=== PATIENT | male | born 1990 | race Caucasian/White ===

== ENCOUNTER 2017-01-20 22:40 | Emergency (ER) | payer OTHER ==
[~2017-01-20] VITALS: Ht 162.5 cm; Wt 77.1 kg
[~2017-01-20 22:40] MED LIST: ALLEGRA ALLERG180 M2 PO; AMBIEN10 MG PO; AMOXICILLIN500 M2 PO; AMOXICILLIN500 MG PO; BACTRIM DS 8001 TA1 PO; HYDROCODONE BIT1 T11 PO; KEFLEX500 MG PO; MOTRIN800 MG PO; NAPROSYN500 MG PO; PREDNISONE20 M1 PO; XANAX0.25 MG PO; ZYRTEC10 MG PO
[2017-01-21 00:53] LABS: URINE AMPHETAMINES < 1000 (1000ng/ml); URINE BARBITURATES < 200 (200ng/ml); URINE COCAINE < 300 (300ng/ml)
[2017-01-21 01:53] LABS: BILIRUBIN NEGATIVE (NEGATIVE); BLOOD NEGATIVE (NEGATIVE); CLARITY CLEAR (CLEAR); COLOR YELLOW (YELLOW); GLUCOSE NEGATIVE (NEGATIVE); KETONE NEGATIVE (NEGATIVE); LEUKO ESTERASE NEGATIVE (NEGATIVE); NITRITE NEGATIVE (NEGATIVE); PROTEIN NEGATIVE (NEGATIVE)
[2017-01-21 02:00] LABS: URINE REFLEX COMMENT NO (NO)
== END 2017-01-21 02:33 | disposition home or self-care (01) ==
LOC: ED 22:40
PROVIDERS: Emergency Medicine Emergency Medical Services
DX: J02.9 Acute pharyngitis, unspecified (principal); B34.9 Viral infection, unspecified

== ENCOUNTER 2017-07-25 01:39 | Emergency (ER) | payer OTHER ==
[~2017-07-25] VITALS: Ht 167.6 cm; Wt 83.9 kg
[2017-07-25 02:29] LABS: BASO % 0.4 % (0.0-1.0); EOS # 0.1 10*3/uL (0.0-0.4); EOS % 1.2 % (1.0-4.0); HEMATOCRIT 41.1 % (42.0-52.0); HEMOGLOBIN 14.1 g/dl (14.0-18.0); LYMPH # 2.7 10*3/uL (1.3-4.4); LYMPH % 34.8 % (27.0-41.0); MEAN CELL VOLUME 86.7 fl (80.0-94.0); MEAN CORPUSCULAR HGB 29.7 pg (27.0-31.0); MEAN CORPUSCULAR HGB CONC 34.3 g/dl (33.0-37.0); MEAN PLATELET VOLUME 10.2 fl (9.6-12.3); MONO # 0.6 10*3/uL (0.1-1.0); MONO % 7.7 % (3.0-9.0); NEUT # 4.3 10*3/uL (2.3-7.9); NEUT % 55.5 % (47.0-73.0); PLATELET COUNT AUTOMATED 236 10*3/uL (130-400); RED BLOOD COUNT 4.74 10*6/uL (4.50-5.90); RED CELL DISTRI WIDTH 12.8 % (0-14.5); WHITE BLOOD COUNT 7.7 10*3/uL (4.8-10.8)
[2017-07-25 02:44] LABS: ALBUMIN 4.3 gm/dl (3.1-4.5); ALKALINE PHOSPHATASE 58 U/L (45-117); BUN 15 mg/dl (7-24); CHLORIDE 107 mmol/L (98-107); CREATININE 1.24 mg/dL (0.70-1.30); POTASSIUM 4.1 mmol/L (3.5-5.1); SGOT/AST 13 IU/L (3-35); SGPT/ALT 14 U/L (12-78); SODIUM 141 mmol/L (136-145); TOTAL PROTEIN 7.7 gm/dL (6.4-8.2)
[2017-07-25 03:09] LABS: BILIRUBIN NEGATIVE (NEGATIVE); BLOOD NEGATIVE (NEGATIVE); CLARITY CLEAR (CLEAR); COLOR YELLOW (YELLOW); GLUCOSE NEGATIVE (NEGATIVE); KETONE NEGATIVE (NEGATIVE); LEUKO ESTERASE NEGATIVE (NEGATIVE); NITRITE NEGATIVE (NEGATIVE); SPECIFIC GRAVITY <= 1.005 (1.005-1.030); UROBILINOGEN 0.2 E.U./dl (0.2-1.0)
[2017-07-25 03:18] LABS: RBC 0-2 rbc/hpf (0-2)
== END 2017-07-25 03:54 | disposition home or self-care (01) ==
LOC: ED 01:39
PROVIDERS: Emergency Medicine
DX: R10.30 Lower abdominal pain, unspecified (principal); F17.200 Nicotine dependence, unspecified, uncomplicated

== ENCOUNTER 2017-10-15 09:02 | Emergency (ER) | payer OTHER ==
[~2017-10-15] VITALS: Ht 165.1 cm; Wt 77.1 kg
[2017-10-15 09:56] LABS: BILIRUBIN NEGATIVE (NEGATIVE); BLOOD NEGATIVE (NEGATIVE); CLARITY CLEAR (CLEAR); COLOR YELLOW (YELLOW); GLUCOSE NEGATIVE (NEGATIVE); KETONE NEGATIVE (NEGATIVE); LEUKO ESTERASE NEGATIVE (NEGATIVE); NITRITE NEGATIVE (NEGATIVE); SPECIFIC GRAVITY <= 1.005 (1.005-1.030); UROBILINOGEN 0.2 E.U./dl (0.2-1.0)
[2017-10-15 10:08] LABS: BACTERIA TRACE; WBC 0-2 wbc/hpf (0-5)
[2017-10-15 10:13] LABS: BASO % 0.3 % (0.0-1.0); EOS # 0.2 10*3/uL (0.0-0.4); EOS % 1.6 % (1.0-4.0); HEMATOCRIT 40.8 % (42.0-52.0); HEMOGLOBIN 13.8 g/dl (14.0-18.0); LYMPH # 1.9 10*3/uL (1.3-4.4); MEAN CELL VOLUME 87.2 fl (80.0-94.0); MEAN CORPUSCULAR HGB 29.5 pg (27.0-31.0); MEAN CORPUSCULAR HGB CONC 33.8 g/dl (33.0-37.0); MEAN PLATELET VOLUME 9.8 fl (9.6-12.3); MONO # 0.6 10*3/uL (0.1-1.0); MONO % 6.5 % (3.0-9.0); NEUT # 7.1 10*3/uL (2.3-7.9); NEUT % 72.1 % (47.0-73.0); PLATELET COUNT AUTOMATED 258 10*3/uL (130-400); RED BLOOD COUNT 4.68 10*6/uL (4.50-5.90); RED CELL DISTRI WIDTH 12.7 % (0-14.5); WHITE BLOOD COUNT 9.8 10*3/uL (4.8-10.8)
[2017-10-15 10:29] LABS: ALBUMIN 3.8 gm/dl (3.1-4.5); ALKALINE PHOSPHATASE 49 U/L (45-117); BUN 11 mg/dl (7-24); CHLORIDE 105 mmol/L (98-107); CREATININE 0.97 mg/dL (0.70-1.30); SGOT/AST 12 IU/L (3-35); SGPT/ALT 19 U/L (12-78); SODIUM 141 mmol/L (136-145); TOTAL PROTEIN 6.9 gm/dL (6.4-8.2)
[2017-10-15] MEDS ORDERED: NAPROSYN500 MG PO (10:36)
[2017-10-15] MEDS ORDERED: CYCLOBENZAPRINE10 MG PO (10:36)
== END 2017-10-15 10:36 | disposition home or self-care (01) ==
LOC: ED 09:02
PROVIDERS: Nurse Practitioner Family
DX: S39.012A Strain of muscle, fascia and tendon of lower back, initial encounter (principal); F17.200 Nicotine dependence, unspecified, uncomplicated; X58.XXXA Exposure to other specified factors, initial encounter; Y93.89 Activity, other specified; Y92.89 Other specified places as the place of occurrence of the external cause; Y99.8 Other external cause status

== ENCOUNTER → 2017-12-30 | Outpatient (CLI) | payer OTHER ==
[~2017-12-30] MED LIST changes: +CYCLOBENZAPRINE10 MG PO
[2017-12-30 13:30] LABS: BASO % 0.5 % (0.0-1.0); EOS # 0.1 10*3/uL (0.0-0.4); EOS % 1.8 % (1.0-4.0); HEMATOCRIT 46.9 % (42.0-52.0); HEMOGLOBIN 16.2 g/dl (14.0-18.0); LYMPH # 2.4 10*3/uL (1.3-4.4); LYMPH % 30.2 % (27.0-41.0); MEAN CELL VOLUME 86.7 fl (80.0-94.0); MEAN CORPUSCULAR HGB 29.9 pg (27.0-31.0); MEAN CORPUSCULAR HGB CONC 34.5 g/dl (33.0-37.0); MEAN PLATELET VOLUME 10.1 fl (9.6-12.3); MONO # 0.6 10*3/uL (0.1-1.0); MONO % 7.4 % (3.0-9.0); NEUT # 4.7 10*3/uL (2.3-7.9); NEUT % 59.6 % (47.0-73.0); PLATELET COUNT AUTOMATED 259 10*3/uL (130-400); RED BLOOD COUNT 5.41 10*6/uL (4.50-5.90); RED CELL DISTRI WIDTH 12.9 % (0-14.5); WHITE BLOOD COUNT 7.9 10*3/uL (4.8-10.8)
[2017-12-30 13:39] LABS: ALBUMIN 4.4 gm/dl (3.1-4.5); BUN 15 mg/dl (7-24); CHLORIDE 106 mmol/L (98-107); CREATININE 1.07 mg/dL (0.70-1.30); PHOSPHOROUS 2.8 mg/dL (2.5-4.9); POTASSIUM 4.2 mmol/L (3.5-5.1); SODIUM 140 mmol/L (136-145)
[2017-12-30 16:18] LABS: BILIRUBIN NEGATIVE (NEGATIVE); BLOOD NEGATIVE (NEGATIVE); CLARITY CLEAR (CLEAR); COLOR YELLOW (YELLOW); GLUCOSE NEGATIVE (NEGATIVE); KETONE NEGATIVE (NEGATIVE); LEUKO ESTERASE NEGATIVE (NEGATIVE); NITRITE NEGATIVE (NEGATIVE); SPECIFIC GRAVITY 1.015 (1.005-1.030); UROBILINOGEN 0.2 E.U./dl (0.2-1.0)
[2017-12-30 16:28] LABS: BACTERIA TRACE; MUCOUS TRACE; RBC 0-2 rbc/hpf (0-2)
== END | disposition home or self-care (01) ==
LOC: LAB 12:48
PROVIDERS: Internal Medicine Nephrology
DX: N17.9 Acute kidney failure, unspecified (principal)

== ENCOUNTER 2017-12-31 02:32 | Emergency (ER) | payer OTHER ==
[~2017-12-31] VITALS: Ht 162.5 cm; Wt 77.1 kg
[2017-12-31 03:06] LABS: BILIRUBIN NEGATIVE (NEGATIVE); BLOOD NEGATIVE (NEGATIVE); CLARITY CLEAR (CLEAR); COLOR YELLOW (YELLOW); GLUCOSE NEGATIVE (NEGATIVE); KETONE NEGATIVE (NEGATIVE); LEUKO ESTERASE NEGATIVE (NEGATIVE); NITRITE NEGATIVE (NEGATIVE); SPECIFIC GRAVITY <= 1.005 (1.005-1.030); UROBILINOGEN 0.2 E.U./dl (0.2-1.0)
[2017-12-31 03:12] LABS: RBC 0-2 rbc/hpf (0-2)
[2017-12-31 03:29] LABS: BASO % 0.4 % (0.0-1.0); EOS # 0.1 10*3/uL (0.0-0.4); EOS % 1.8 % (1.0-4.0); HEMATOCRIT 41.7 % (42.0-52.0); HEMOGLOBIN 14.2 g/dl (14.0-18.0); LYMPH # 2.2 10*3/uL (1.3-4.4); LYMPH % 29.8 % (27.0-41.0); MEAN CELL VOLUME 86.9 fl (80.0-94.0); MEAN CORPUSCULAR HGB 29.6 pg (27.0-31.0); MEAN CORPUSCULAR HGB CONC 34.1 g/dl (33.0-37.0); MEAN PLATELET VOLUME 9.9 fl (9.6-12.3); MONO # 0.6 10*3/uL (0.1-1.0); MONO % 7.8 % (3.0-9.0); NEUT # 4.4 10*3/uL (2.3-7.9); NEUT % 59.8 % (47.0-73.0); PLATELET COUNT AUTOMATED 221 10*3/uL (130-400); RED CELL DISTRI WIDTH 12.7 % (0-14.5); WHITE BLOOD COUNT 7.3 10*3/uL (4.8-10.8)
[2017-12-31 03:43] LABS: ALBUMIN 3.8 gm/dl (3.1-4.5); ALKALINE PHOSPHATASE 56 U/L (45-117); BUN 12 mg/dl (7-24); CHLORIDE 107 mmol/L (98-107); CREATININE 1.11 mg/dL (0.70-1.30); POTASSIUM 3.8 mmol/L (3.5-5.1); SGOT/AST 16 IU/L (3-35); SGPT/ALT 18 U/L (12-78); SODIUM 140 mmol/L (136-145); TOTAL PROTEIN 6.9 gm/dL (6.4-8.2)
== END 2017-12-31 03:50 | disposition home or self-care (01) ==
LOC: ED 02:32
PROVIDERS: Student in an Organized Health Care Education/Training Program
DX: R10.30 Lower abdominal pain, unspecified (principal); F17.200 Nicotine dependence, unspecified, uncomplicated

== ENCOUNTER 2018-02-28 21:54 | Emergency (ER) | payer OTHER ==
[~2018-02-28] VITALS: Ht 165.1 cm; Wt 77.1 kg
[2018-03-01] MEDS ORDERED: NAPROSYN500 MG PO (00:55)
[2018-03-02] MEDS ORDERED: CYCLOBENZAPRINE10 MG PO (00:32)
== END 2018-03-01 00:57 | disposition home or self-care (01) ==
LOC: ED 21:54
DX: S29.011A Strain of muscle and tendon of front wall of thorax, initial encounter (principal); F17.200 Nicotine dependence, unspecified, uncomplicated; X50.1XXA Overexertion from prolonged static or awkward postures, initial encounter; Y93.89 Activity, other specified; Y92.89 Other specified places as the place of occurrence of the external cause; Y99.9 Unspecified external cause status

== ENCOUNTER 2018-03-02 00:14 | Emergency (ER) | payer OTHER ==
[~2018-03-02] VITALS: Ht 162.5 cm; Wt 77.1 kg
[2018-03-02] MEDS ORDERED: CYCLOBENZAPRINE10 MG PO (00:32)
== END 2018-03-02 00:56 | disposition home or self-care (01) ==
LOC: ED 00:14
DX: S29.011D Strain of muscle and tendon of front wall of thorax, subsequent encounter (principal); F17.210 Nicotine dependence, cigarettes, uncomplicated; Z79.899 Other long term (current) drug therapy; X50.1XXD Overexertion from prolonged static or awkward postures, subsequent encounter

== ENCOUNTER 2018-03-05 22:00 | Inpatient (IN) | payer OTHER ==
[~2018-03-05] VITALS: Ht 162.6 cm; Wt 77.1 kg
--- NOTE | ~2018-03-05 | O ---
[place], [place] OPERATIVE NOTE NAME: SUSANNA BURNETT UNIT #: [id number] ROOM: 406 DOCTOR: CHARLIE CARMONAKIANDAI BIRTHDATE: [birth year] DOS: 03/07/2018 HISTORY OF PRESENT ILLNESS: The patient is a 27-year-old who has presented with a few days of atypical chest pain, epigastric pain. The patient ____ to have only to NAPROXEN taken only and had to be admitted and undergo cardiac workup, which was declared normal. PAST MEDICAL HISTORY: Anxiety, marijuana use and bilateral carpal tunnel syndrome. PAST SURGICAL HISTORY: Pelvic surgery and genitourinary surgery ____. SOCIAL HISTORY: Smoker of marijuana products and nicotine. FAMILY HISTORY: Noncontributory otherwise. ALLERGIES: To no known medication. MEDICATIONS: List including cyclobenzaprine and also naproxen that he has had 30 tablets available. PROCEDURE: Today's procedure part of investigation is panendoscopy plus biopsy and photographic series. PREMEDICATION: Propofol. SCOPE: Olympus forward-viewing gastroscope Q10 video. REPORT: After putting the patient in left lateral position and application of lubricant to the scope, the scope was introduced. Thereafter, under direct visualization, advanced through the length of esophagus without difficulty into gastric pouch. Distal esophagitis, distal esophageal ulcers secondary to reflux was identified. Small hiatal hernia of 2 cm noticed. Gastric pouch was entered. Bile reflux gastritis seen. As we approached towards the pyloric ring, essentially 3/4 of the pyloric ring is ulcerated and some compromise in its patency; however, I utilized the scope for its dilation and duodenum was entered second part and third part within normal limits. Biopsy from margin of the ulcer was obtained, ruling out H. pylori involvement. Air was suctioned out. The patient was extubated, tolerated the procedure well. IMPRESSION: Distal esophageal ulcer secondary to reflux, small hiatal hernia, gastritis, pyloric ring ulcers. PLAN AND DISCUSSION: Above finding can explain atypical chest pain in this gentleman, particularly the drop in H and H to 86 and 25 can be explained based on above and otherwise, we are going to treat this patient with Protonix 40 mg IV b.i.d., Carafate slurry 2 grams before meals and at bedtime while he is inpatient. We are going to abstain him from intake of naproxen anymore and no carbonated soda, avoiding cigarette smoking and Gaviscon Extra Strength 1 at bedtime and clinical reassessment as outpatient. [place], [place] OPERATIVE NOTE NAME: SUSANNA BURNETT UNIT #: [id number] ROOM: [facility] DOCTOR: CHARLIE CARMONA,GENE BIRTHDATE: [birth year] Duration of Carafate could be 1 month in therapy, duration of Protonix 40 mg per day x 3 months and labs reviewed, records reviewed, data reviewed. Thank you very much indeed. GENE GUERRA MD CM:OPRPREETORD:OPERATIVE NOTE 1615 1703 GENE GUERRA MD 03/07/18 1702 interface
[2018-03-05 22:01] VITALS: BP 118/72
[2018-03-05 22:30] VITALS: BP 110/61
[2018-03-05 22:31] LABS: BASO # 0.1 10*3/uL (0.0-0.1); BASO % 0.7 % (0.0-1.0); EOS # 0.1 10*3/uL (0.0-0.4); EOS % 1.2 % (1.0-4.0); HEMOGLOBIN 8.6 g/dl (14.0-18.0); LYMPH # 2.2 10*3/uL (1.3-4.4); LYMPH % 29.9 % (27.0-41.0); MEAN CELL VOLUME 85.9 fl (80.0-94.0); MEAN CORPUSCULAR HGB 29.6 pg (27.0-31.0); MEAN CORPUSCULAR HGB CONC 34.4 g/dl (33.0-37.0); MEAN PLATELET VOLUME 9.7 fl (9.6-12.3); MONO # 0.5 10*3/uL (0.1-1.0); MONO % 6.6 % (3.0-9.0); NEUT # 4.5 10*3/uL (2.3-7.9); NEUT % 60.5 % (47.0-73.0); PLATELET COUNT AUTOMATED 246 10*3/uL (130-400); RED BLOOD COUNT 2.91 10*6/uL (4.50-5.90); RED CELL DISTRI WIDTH 12.9 % (0-14.5); WHITE BLOOD COUNT 7.5 10*3/uL (4.8-10.8)
[2018-03-05 22:42] LABS: ACT PARTIAL THROMBO TIME 23.7 SECONDS (20.8-31.5)
[2018-03-05 22:48] LABS: ALBUMIN 3.5 gm/dl (3.1-4.5); ALKALINE PHOSPHATASE 46 U/L (45-117); BUN 19 mg/dl (7-24); CHLORIDE 108 mmol/L (98-107); CREATININE 1.08 mg/dL (0.70-1.30); POTASSIUM 3.8 mmol/L (3.5-5.1); SGOT/AST 12 IU/L (3-35); SGPT/ALT 17 U/L (12-78); SODIUM 140 mmol/L (136-145); TOTAL PROTEIN 6.1 gm/dL (6.4-8.2); TROPONIN I < 0.015 ng/ml (<0.045)
[2018-03-05 23:01] VITALS: BP 110/61
[2018-03-05 23:33] VITALS: BP 118/52
[2018-03-06] VITALS (16 sets, daily range): BP systolic 102–148; BP diastolic 54–79
[2018-03-06 00:05] LABS: URINE AMPHETAMINES < 1000 (1000ng/ml); URINE BARBITURATES < 200 (200ng/ml); URINE BENZODIAZEPINES > 200 (200ng/ml); URINE CANNABINOIDS (THC) > 50 (50ng/ml); URINE COCAINE < 300 (300ng/ml); URINE METHADONE < 300 (300ng/ml); URINE OPIATES < 300 (300ng/ml)
[2018-03-06 00:16] LABS: URINE PHENCYCLIDINE < 25 (25ng/ml)
[2018-03-06 04:29] LABS: BASO % 0.5 % (0.0-1.0); EOS # 0.1 10*3/uL (0.0-0.4); EOS % 1.7 % (1.0-4.0); HEMATOCRIT 25.5 % (42.0-52.0); HEMOGLOBIN 8.6 g/dl (14.0-18.0); LYMPH % 38.7 % (27.0-41.0); MEAN CELL VOLUME 86.7 fl (80.0-94.0); MEAN CORPUSCULAR HGB 29.3 pg (27.0-31.0); MEAN CORPUSCULAR HGB CONC 33.7 g/dl (33.0-37.0); MEAN PLATELET VOLUME 9.9 fl (9.6-12.3); MONO # 0.5 10*3/uL (0.1-1.0); MONO % 6.7 % (3.0-9.0); NEUT % 51.4 % (47.0-73.0); PLATELET COUNT AUTOMATED 261 10*3/uL (130-400); RED BLOOD COUNT 2.94 10*6/uL (4.50-5.90); RED CELL DISTRI WIDTH 13.2 % (0-14.5); WHITE BLOOD COUNT 7.7 10*3/uL (4.8-10.8)
[2018-03-06 04:45] LABS: ALBUMIN 3.5 gm/dl (3.1-4.5); ALKALINE PHOSPHATASE 44 U/L (45-117); BUN 16 mg/dl (7-24); CHLORIDE 107 mmol/L (98-107); CHOLESTEROL 94 mg/dL (<200); CREATININE 0.95 mg/dL (0.70-1.30); HDL CHOLESTEROL 27 mg/dl (40-60); LDL CHOLESTEROL 31 mg/dL (9-159); PHOSPHOROUS 3.5 mg/dL (2.5-4.9); POTASSIUM 3.7 mmol/L (3.5-5.1); SGOT/AST 13 IU/L (3-35); SGPT/ALT 15 U/L (12-78); SODIUM 141 mmol/L (136-145); TRIGLYCERIDES 179 mg/dl (<150); VLDL CHOLESTEROL 36 mg/dL (6-40)
[2018-03-06 07:14] LABS: VITAMIN D, 25-HYDROXY 23.1 ng/mL (30-100)
[2018-03-06] MEDS ORDERED: CLINDAMYCIN150 MG PO (13:58)
[2018-03-06 17:20] LABS: HEMATOCRIT 27.9 % (42.0-52.0); HEMOGLOBIN 9.4 g/dl (14.0-18.0)
[2018-03-07] VITALS (10 sets, daily range): BP systolic 104–141; BP diastolic 53–84
[2018-03-07 06:24] LABS: HEMATOCRIT 28.6 % (42.0-52.0); HEMOGLOBIN 9.5 g/dl (14.0-18.0)
[2018-03-08] MEDS ORDERED: AMBIEN10 M1 PO (09:08)
[2018-03-08] MEDS ORDERED: XANAX1 MG PO (09:09)
== END 2018-03-07 21:30 | disposition left against medical advice (07) | DRG 391 ==
LOC: ED 22:00 → 4E 03-06 00:34
PROVIDERS: Emergency Medicine; Family Medicine; Internal Medicine Gastroenterology; Internal Medicine Hospice and Palliative Medicine
PROC: 30233N1 Transfusion of Nonautologous Red Blood Cells into Peripheral Vein, Percutaneous Approach (ICD-10-PCS; 2018-03-06)
PROC: 0DB68ZX Excision of Stomach, Via Natural or Artificial Opening Endoscopic, Diagnostic (ICD-10-PCS; principal; 2018-03-07)
DX: K21.0 Gastro-esophageal reflux disease with esophagitis (principal); K22.11 Ulcer of esophagus with bleeding; E87.8 Other disorders of electrolyte and fluid balance, not elsewhere classified; K25.0 Acute gastric ulcer with hemorrhage; E83.51 Hypocalcemia; F12.10 Cannabis abuse, uncomplicated; D50.0 Iron deficiency anemia secondary to blood loss (chronic); E66.3 Overweight; K29.71 Gastritis, unspecified, with bleeding; R55 Syncope and collapse; R73.9 Hyperglycemia, unspecified; F41.1 Generalized anxiety disorder; G56.03 Carpal tunnel syndrome, bilateral upper limbs; Z53.21 Procedure and treatment not carried out due to patient leaving prior to being seen by health care provider; K44.9 Diaphragmatic hernia without obstruction or gangrene; Z72.0 Tobacco use; Z71.6 Tobacco abuse counseling; Z82.49 Family history of ischemic heart disease and other diseases of the circulatory system; Z83.79 Family history of other diseases of the digestive system; Z68.29 Body mass index [BMI] 29.0-29.9, adult

== ENCOUNTER 2018-03-08 05:26 | Inpatient (IN) | payer OTHER ==
[~2018-03-08] VITALS: Ht 162.6 cm; Wt 77.1 kg
[2018-03-08] VITALS (7 sets, daily range): BP systolic 109–136; BP diastolic 41–73
[~2018-03-08 05:26] MED LIST changes: +CLINDAMYCIN150 MG PO
[2018-03-08 05:49] LABS: BASO % 0.3 % (0.0-1.0); EOS # 0.2 10*3/uL (0.0-0.4); EOS % 1.9 % (1.0-4.0); HEMATOCRIT 30.7 % (42.0-52.0); HEMOGLOBIN 10.2 g/dl (14.0-18.0); LYMPH # 2.9 10*3/uL (1.3-4.4); LYMPH % 30.3 % (27.0-41.0); MEAN CELL VOLUME 85.5 fl (80.0-94.0); MEAN CORPUSCULAR HGB 28.4 pg (27.0-31.0); MEAN CORPUSCULAR HGB CONC 33.2 g/dl (33.0-37.0); MEAN PLATELET VOLUME 10.6 fl (9.6-12.3); MONO # 0.5 10*3/uL (0.1-1.0); MONO % 5.4 % (3.0-9.0); NEUT # 5.8 10*3/uL (2.3-7.9); NEUT % 60.4 % (47.0-73.0); PLATELET COUNT AUTOMATED 288 10*3/uL (130-400); RED BLOOD COUNT 3.59 10*6/uL (4.50-5.90); RED CELL DISTRI WIDTH 15.6 % (0-14.5); WHITE BLOOD COUNT 9.5 10*3/uL (4.8-10.8)
[2018-03-08 05:57] LABS: BUN 11 mg/dl (7-24); CHLORIDE 107 mmol/L (98-107); CREATININE 0.99 mg/dL (0.70-1.30); POTASSIUM 3.6 mmol/L (3.5-5.1); SODIUM 141 mmol/L (136-145)
[2018-03-08 06:26] LABS: ALBUMIN 3.8 gm/dl (3.1-4.5); ALKALINE PHOSPHATASE 48 U/L (45-117); BUN 11 mg/dl (7-24); CHLORIDE 107 mmol/L (98-107); LIPASE 237 U/L (73-393); POTASSIUM 3.6 mmol/L (3.5-5.1); SGOT/AST 12 IU/L (3-35); SGPT/ALT 14 U/L (12-78); SODIUM 141 mmol/L (136-145); TOTAL PROTEIN 6.6 gm/dL (6.4-8.2)
[2018-03-08 07:25] LABS: BILIRUBIN NEGATIVE (NEGATIVE); BLOOD NEGATIVE (NEGATIVE); CLARITY CLEAR (CLEAR); COLOR YELLOW (YELLOW); GLUCOSE NEGATIVE (NEGATIVE); KETONE NEGATIVE (NEGATIVE); LEUKO ESTERASE NEGATIVE (NEGATIVE); NITRITE NEGATIVE (NEGATIVE); PH 5.5 (5.0-9.0); SPECIFIC GRAVITY 1.015 (1.005-1.030); UROBILINOGEN 0.2 E.U./dl (0.2-1.0)
[2018-03-08] MEDS ORDERED: AMBIEN10 M1 PO (09:08)
[2018-03-08] MEDS ORDERED: XANAX1 MG PO (09:09)
[2018-03-09] VITALS: BP 114/58
[2018-03-09 06:03] LABS: BASO % 0.3 % (0.0-1.0); EOS # 0.2 10*3/uL (0.0-0.4); EOS % 1.8 % (1.0-4.0); HEMATOCRIT 30.4 % (42.0-52.0); HEMOGLOBIN 10.1 g/dl (14.0-18.0); LYMPH # 2.7 10*3/uL (1.3-4.4); LYMPH % 31.1 % (27.0-41.0); MEAN CELL VOLUME 85.2 fl (80.0-94.0); MEAN CORPUSCULAR HGB 28.3 pg (27.0-31.0); MEAN CORPUSCULAR HGB CONC 33.2 g/dl (33.0-37.0); MEAN PLATELET VOLUME 10.5 fl (9.6-12.3); MONO # 0.6 10*3/uL (0.1-1.0); NEUT # 5.1 10*3/uL (2.3-7.9); NEUT % 58.4 % (47.0-73.0); PLATELET COUNT AUTOMATED 284 10*3/uL (130-400); RED BLOOD COUNT 3.57 10*6/uL (4.50-5.90); RED CELL DISTRI WIDTH 15.6 % (0-14.5); WHITE BLOOD COUNT 8.7 10*3/uL (4.8-10.8)
[2018-03-09 06:07] LABS: ALBUMIN 3.7 gm/dl (3.1-4.5); ALKALINE PHOSPHATASE 45 U/L (45-117); BUN 12 mg/dl (7-24); CHLORIDE 107 mmol/L (98-107); CREATININE 0.93 mg/dL (0.70-1.30); POTASSIUM 3.6 mmol/L (3.5-5.1); SGOT/AST 12 IU/L (3-35); SGPT/ALT 15 U/L (12-78); SODIUM 141 mmol/L (136-145); TOTAL PROTEIN 6.5 gm/dL (6.4-8.2)
[2018-03-09 08:00] VITALS: BP 130/62
[2018-03-09] MEDS ORDERED: PANTOPRAZOLE SO40 MG PO (09:57)
[2018-03-09] MEDS ORDERED: ACID GONE TABL1 EACH PO (09:57)
[2018-03-09] MEDS ORDERED: Carafate1 GM/10 ML PO (09:57)
== END 2018-03-09 11:45 | disposition home or self-care (01) | DRG 382 ==
LOC: ED 05:26 → EDHOLD 07:22 → 5E 08:20
PROVIDERS: Emergency Medicine Emergency Medical Services; Internal Medicine
DX: K22.11 Ulcer of esophagus with bleeding (principal); K25.0 Acute gastric ulcer with hemorrhage; R07.89 Other chest pain; F12.10 Cannabis abuse, uncomplicated; F41.1 Generalized anxiety disorder; G56.03 Carpal tunnel syndrome, bilateral upper limbs; K21.0 Gastro-esophageal reflux disease with esophagitis; D64.9 Anemia, unspecified; K44.9 Diaphragmatic hernia without obstruction or gangrene; F17.210 Nicotine dependence, cigarettes, uncomplicated; E66.3 Overweight; R73.9 Hyperglycemia, unspecified; Z71.6 Tobacco abuse counseling; Z82.49 Family history of ischemic heart disease and other diseases of the circulatory system; Z79.899 Other long term (current) drug therapy; Z83.79 Family history of other diseases of the digestive system; Z68.29 Body mass index [BMI] 29.0-29.9, adult

== ENCOUNTER 2018-05-01 21:48 | Emergency (ER) | payer OTHER ==
[~2018-05-01] VITALS: Ht 162.5 cm; Wt 74.8 kg
[~2018-05-01 21:48] MED LIST changes: +ACID GONE TABL1 EACH PO; +AMBIEN10 M1 PO; +Carafate1 GM/10 ML PO; +PANTOPRAZOLE SO40 MG PO; +XANAX1 MG PO
[2018-05-01 22:13] LABS: BASO % 0.4 % (0.0-1.0); EOS % 0.4 % (1.0-4.0); HEMATOCRIT 42.8 % (42.0-52.0); HEMOGLOBIN 14.4 g/dl (14.0-18.0); LYMPH # 1.9 10*3/uL (1.3-4.4); LYMPH % 20.5 % (27.0-41.0); MEAN CELL VOLUME 85.1 fl (80.0-94.0); MEAN CORPUSCULAR HGB 28.6 pg (27.0-31.0); MEAN CORPUSCULAR HGB CONC 33.6 g/dl (33.0-37.0); MEAN PLATELET VOLUME 10.6 fl (9.6-12.3); MONO # 0.8 10*3/uL (0.1-1.0); MONO % 8.6 % (3.0-9.0); NEUT # 6.6 10*3/uL (2.3-7.9); NEUT % 69.9 % (47.0-73.0); PLATELET COUNT AUTOMATED 270 10*3/uL (130-400); RED BLOOD COUNT 5.03 10*6/uL (4.50-5.90); RED CELL DISTRI WIDTH 13.1 % (0-14.5); WHITE BLOOD COUNT 9.4 10*3/uL (4.8-10.8)
[2018-05-01 22:30] LABS: ALBUMIN 4.5 gm/dl (3.1-4.5); ALKALINE PHOSPHATASE 65 U/L (45-117); BUN 16 mg/dl (7-24); CHLORIDE 104 mmol/L (98-107); CREATININE 1.21 mg/dL (0.70-1.30); LIPASE 90 U/L (73-393); POTASSIUM 3.6 mmol/L (3.5-5.1); SGOT/AST 16 IU/L (3-35); SGPT/ALT 16 U/L (12-78); SODIUM 138 mmol/L (136-145)
[2018-05-01 22:34] LABS: ETHYL ALCOHOL < 3.0 mg/dl (<3)
[2018-05-01 23:04] LABS: BILIRUBIN NEGATIVE (NEGATIVE); BLOOD NEGATIVE (NEGATIVE); CLARITY CLEAR (CLEAR); COLOR YELLOW (YELLOW); GLUCOSE NEGATIVE (NEGATIVE); KETONE 1+ (NEGATIVE); LEUKO ESTERASE NEGATIVE (NEGATIVE); NITRITE NEGATIVE (NEGATIVE); UROBILINOGEN 0.2 E.U./dl (0.2-1.0)
[2018-05-01 23:13] LABS: URINE AMPHETAMINES < 1000 (1000ng/ml); URINE BARBITURATES < 200 (200ng/ml); URINE BENZODIAZEPINES < 200 (200ng/ml); URINE CANNABINOIDS (THC) > 50 (50ng/ml); URINE COCAINE < 300 (300ng/ml); URINE METHADONE < 300 (300ng/ml); URINE OPIATES < 300 (300ng/ml)
[2018-05-01 23:18] LABS: URINE PHENCYCLIDINE < 25 (25ng/ml)
[2018-05-01 23:19] LABS: WBC 0-2 wbc/hpf (0-5)
[2018-05-02] MEDS ORDERED: PROTONIX40 MG PO (01:06)
== END 2018-05-02 01:44 | disposition home or self-care (01) ==
LOC: ED 21:48
PROVIDERS: Emergency Medicine Emergency Medical Services
DX: K22.10 Ulcer of esophagus without bleeding (principal); F41.1 Generalized anxiety disorder; F43.0 Acute stress reaction; F17.200 Nicotine dependence, unspecified, uncomplicated

== ENCOUNTER 2018-05-17 05:50 | Emergency (ER) | payer OTHER ==
[~2018-05-17] VITALS: Ht 162.5 cm; Wt 74.8 kg
[~2018-05-17 05:50] MED LIST changes: +PROTONIX40 MG PO
[2018-05-17 06:36] LABS: BILIRUBIN NEGATIVE (NEGATIVE); BLOOD NEGATIVE (NEGATIVE); CLARITY CLEAR (CLEAR); COLOR YELLOW (YELLOW); GLUCOSE NEGATIVE (NEGATIVE); KETONE NEGATIVE (NEGATIVE); LEUKO ESTERASE NEGATIVE (NEGATIVE); NITRITE NEGATIVE (NEGATIVE); PH 5.5 (5.0-9.0); UROBILINOGEN 0.2 E.U./dl (0.2-1.0)
[2018-05-17 06:43] LABS: BASO # 0.1 10*3/uL (0.0-0.1); BASO % 0.5 % (0.0-1.0); EOS # 0.2 10*3/uL (0.0-0.4); EOS % 1.6 % (1.0-4.0); HEMATOCRIT 46.1 % (42.0-52.0); HEMOGLOBIN 15.2 g/dl (14.0-18.0); LYMPH # 2.6 10*3/uL (1.3-4.4); LYMPH % 27.5 % (27.0-41.0); MEAN CELL VOLUME 85.5 fl (80.0-94.0); MEAN CORPUSCULAR HGB 28.2 pg (27.0-31.0); MEAN PLATELET VOLUME 10.7 fl (9.6-12.3); MONO # 0.7 10*3/uL (0.1-1.0); MONO % 7.3 % (3.0-9.0); NEUT # 5.9 10*3/uL (2.3-7.9); NEUT % 62.8 % (47.0-73.0); PLATELET COUNT AUTOMATED 259 10*3/uL (130-400); RED BLOOD COUNT 5.39 10*6/uL (4.50-5.90); RED CELL DISTRI WIDTH 12.8 % (0-14.5); WHITE BLOOD COUNT 9.4 10*3/uL (4.8-10.8)
[2018-05-17 07:03] LABS: BACTERIA TRACE; RBC 0-2 rbc/hpf (0-2)
[2018-05-17 07:13] LABS: ALKALINE PHOSPHATASE 63 U/L (45-117); BUN 14 mg/dl (7-24); CHLORIDE 104 mmol/L (98-107); CREATININE 1.14 mg/dL (0.70-1.30); LIPASE 99 U/L (73-393); SGOT/AST 46 IU/L (3-35); SGPT/ALT 22 U/L (12-78); SODIUM 136 mmol/L (136-145); TOTAL PROTEIN 7.7 gm/dL (6.4-8.2)
[2018-05-17 07:16] LABS: POTASSIUM 5.9 mmol/L (3.5-5.1)
[2018-05-17] MEDS ORDERED: IMODIUM A-D2 M2 PO (07:34)
== END 2018-05-17 07:35 | disposition home or self-care (01) ==
LOC: ED 05:50
PROVIDERS: Emergency Medicine Emergency Medical Services
DX: K52.9 Noninfective gastroenteritis and colitis, unspecified (principal); K21.0 Gastro-esophageal reflux disease with esophagitis; E66.3 Overweight; F17.210 Nicotine dependence, cigarettes, uncomplicated; F12.10 Cannabis abuse, uncomplicated; Z68.25 Body mass index [BMI] 25.0-25.9, adult

== ENCOUNTER 2018-06-23 03:17 | Emergency (ER) | payer OTHER ==
[~2018-06-23] VITALS: Ht 162.5 cm; Wt 79.4 kg
[~2018-06-23 03:17] MED LIST changes: +IMODIUM A-D2 M2 PO
[2018-06-23 04:30] LABS: BASO % 0.3 % (0.0-1.0); EOS # 0.1 10*3/uL (0.0-0.4); EOS % 0.8 % (1.0-4.0); HEMATOCRIT 46.1 % (42.0-52.0); HEMOGLOBIN 15.4 g/dl (14.0-18.0); LYMPH # 2.2 10*3/uL (1.3-4.4); LYMPH % 14.1 % (27.0-41.0); MEAN CELL VOLUME 83.1 fl (80.0-94.0); MEAN CORPUSCULAR HGB 27.7 pg (27.0-31.0); MEAN CORPUSCULAR HGB CONC 33.4 g/dl (33.0-37.0); MEAN PLATELET VOLUME 10.5 fl (9.6-12.3); MONO % 6.5 % (3.0-9.0); PLATELET COUNT AUTOMATED 221 10*3/uL (130-400); RED BLOOD COUNT 5.55 10*6/uL (4.50-5.90); RED CELL DISTRI WIDTH 12.8 % (0-14.5); WHITE BLOOD COUNT 15.4 10*3/uL (4.8-10.8)
[2018-06-23 04:49] LABS: ALBUMIN 3.9 gm/dl (3.1-4.5); BUN 15 mg/dl (7-24); CHLORIDE 105 mmol/L (98-107); CREATININE 0.99 mg/dL (0.70-1.30); POTASSIUM 3.7 mmol/L (3.5-5.1); SGOT/AST 15 IU/L (3-35); SGPT/ALT 19 U/L (12-78); SODIUM 139 mmol/L (136-145); TOTAL PROTEIN 7.4 gm/dL (6.4-8.2)
[2018-06-23 04:50] LABS: ALKALINE PHOSPHATASE 56 U/L (45-117)
[2018-06-23] MEDS ORDERED: 'XANAX1 MG PO (14:53)
[2018-06-23] MEDS ORDERED: DICYCLOMINE HCL10 MG PO (14:54)
[2018-06-24] MEDS ORDERED: CIPRO500 MG PO (13:01)
[2018-06-24] MEDS ORDERED: FLAGYL500 MG PO (13:01)
== END 2018-06-23 05:12 | disposition home or self-care (01) ==
LOC: ED 03:17
PROVIDERS: Student in an Organized Health Care Education/Training Program
DX: R10.9 Unspecified abdominal pain (principal); R11.0 Nausea; R14.0 Abdominal distension (gaseous); K21.9 Gastro-esophageal reflux disease without esophagitis; Z87.891 Personal history of nicotine dependence

== ENCOUNTER 2018-08-14 15:08 | Emergency (ER) | payer OTHER ==
[~2018-08-14] VITALS: Ht 162.5 cm; Wt 79.4 kg
[~2018-08-14 15:08] MED LIST changes: +'XANAX1 MG PO; +CIPRO500 MG PO; +DICYCLOMINE HCL10 MG PO; +FLAGYL500 MG PO
[2018-08-14 17:38] LABS: BASO % 0.5 % (0.0-1.0); EOS # 0.1 10*3/uL (0.0-0.4); EOS % 1.1 % (1.0-4.0); HEMATOCRIT 43.1 % (42.0-52.0); HEMOGLOBIN 14.7 g/dl (14.0-18.0); LYMPH # 2.1 10*3/uL (1.3-4.4); LYMPH % 28.5 % (27.0-41.0); MEAN CELL VOLUME 85.5 fl (80.0-94.0); MEAN CORPUSCULAR HGB 29.2 pg (27.0-31.0); MEAN CORPUSCULAR HGB CONC 34.1 g/dl (33.0-37.0); MEAN PLATELET VOLUME 9.8 fl (9.6-12.3); MONO # 0.5 10*3/uL (0.1-1.0); MONO % 6.3 % (3.0-9.0); NEUT # 4.7 10*3/uL (2.3-7.9); NEUT % 62.9 % (47.0-73.0); PLATELET COUNT AUTOMATED 240 10*3/uL (130-400); RED BLOOD COUNT 5.04 10*6/uL (4.50-5.90); RED CELL DISTRI WIDTH 14.1 % (0-14.5); WHITE BLOOD COUNT 7.5 10*3/uL (4.8-10.8)
[2018-08-14 17:58] LABS: ALBUMIN 3.8 gm/dl (3.1-4.5); ALKALINE PHOSPHATASE 61 U/L (45-117); BUN 9 mg/dl (7-24); CHLORIDE 108 mmol/L (98-107); CREATININE 1.02 mg/dL (0.70-1.30); LIPASE 122 U/L (73-393); POTASSIUM 4.1 mmol/L (3.5-5.1); SGOT/AST 21 IU/L (3-35); SGPT/ALT 24 U/L (12-78); SODIUM 140 mmol/L (136-145); TOTAL PROTEIN 7.1 gm/dL (6.4-8.2)
[2018-08-14 18:52] LABS: BILIRUBIN NEGATIVE (NEGATIVE); BLOOD NEGATIVE (NEGATIVE); CLARITY CLEAR (CLEAR); COLOR YELLOW (YELLOW); GLUCOSE NEGATIVE (NEGATIVE); KETONE NEGATIVE (NEGATIVE); LEUKO ESTERASE NEGATIVE (NEGATIVE); NITRITE NEGATIVE (NEGATIVE); PH 7.5 (5.0-9.0); SPECIFIC GRAVITY 1.015 (1.005-1.030); UROBILINOGEN 0.2 E.U./dl (0.2-1.0)
[2018-08-14 19:09] LABS: BACTERIA TRACE; MUCOUS TRACE; WBC 0-2 wbc/hpf (0-5)
[2018-08-14] MEDS ORDERED: ANUSOL-HC25 MG R (20:22)
== END 2018-08-14 20:25 | disposition home or self-care (01) ==
LOC: ED 15:08
PROVIDERS: Physician Assistant
DX: K62.5 Hemorrhage of anus and rectum (principal); K59.00 Constipation, unspecified; F17.210 Nicotine dependence, cigarettes, uncomplicated

== ENCOUNTER 2018-09-13 01:32 | Emergency (ER) | payer OTHER ==
[~2018-09-13] VITALS: Ht 162.5 cm; Wt 79.4 kg
[~2018-09-13 01:32] MED LIST changes: +ANUSOL-HC25 MG R
== END 2018-09-13 02:19 | disposition home or self-care (01) ==
LOC: ED 01:32
DX: R51 Headache (principal); R42 Dizziness and giddiness; R11.0 Nausea; M54.2 Cervicalgia; K21.9 Gastro-esophageal reflux disease without esophagitis; F17.210 Nicotine dependence, cigarettes, uncomplicated; Z79.899 Other long term (current) drug therapy; Z79.2 Long term (current) use of antibiotics

== ENCOUNTER 2018-10-15 02:20 | Emergency (ER) | payer OTHER ==
[~2018-10-15] VITALS: Ht 162.5 cm; Wt 74.8 kg
[2018-10-15] MEDS ORDERED: FLONASE ALLERG9.9 ML NAS (03:50)
[2018-10-15] MEDS ORDERED: Fioricet 325 MG1 TAB PO (03:50)
== END 2018-10-15 04:03 | disposition home or self-care (01) ==
LOC: ED 02:20
DX: G44.209 Tension-type headache, unspecified, not intractable (principal); K21.9 Gastro-esophageal reflux disease without esophagitis; F17.210 Nicotine dependence, cigarettes, uncomplicated

== ENCOUNTER → 2018-11-13 | Outpatient (CLI) | payer OTHER ==
[~2018-11-13] MED LIST changes: +FLONASE ALLERG9.9 ML NAS; +Fioricet 325 MG1 TAB PO
--- NOTE | ~2018-11-13 | EKG ---
[place], [place] ELECTROCARDIOGRAM REPORT NAME: SUSANNA BURNETT UNIT #: [id number] ROOM: DOCTOR: EPIPHANY DRAFT REPORT BIRTHDATE: [birth year] [facility] Test Date: 2018-11-13 Test Time: 16:36:14 Pat Name: SUSANNA BURNETT Department: Room: Gender: Legal Advisor: Paz Hebert : 1990 Requested By: JAMIE ARREDONDO Order Number: [id number] Reading MD: Albert Hernandez MD Measurements Intervals [place] Rate: 61 P: 18 RI: 164 QRS: 62 QRSD: 96 T: 19 QT: 390 QTc: 393 Interpretive Statements Sinus rhythm RSR' in V1 or V2, probably normal variant ST elev, probable normal early repol pattern No previous ECG available for comparison Electronically Signed On 11-13-2018 18:11:08 PST by Albert Hernandez MD CM:EKGRPT:ELECTROCARDIOGRAM REPORT 1636 1811 JAMIE ARREDONDO EPIPHANY DRAFT REPORT JAMIE ARREDONDO
== END | disposition home or self-care (01) ==
LOC: LAB 16:24
DX: K52.9 Noninfective gastroenteritis and colitis, unspecified (principal); J45.909 Unspecified asthma, uncomplicated

== ENCOUNTER → 2018-11-17 | Outpatient (CLI) | payer OTHER | END | disposition home or self-care (01) | LOC: LAB 15:24 | DX: K52.9 Noninfective gastroenteritis and colitis, unspecified (principal) ==

== ENCOUNTER 2020-06-16 07:27 | Emergency (ER) | payer OTHER ==
[~2020-06-16] VITALS: Ht 165.1 cm; Wt 75.7 kg
[2020-06-16 07:58] LABS: BILIRUBIN NEGATIVE; BLOOD NEGATIVE (NEGATIVE); CLARITY CLEAR (CLEAR); COLOR YELLOW (YELLOW); GLUCOSE NEGATIVE; KETONE 1+; LEUKO ESTERASE NEGATIVE (NEGATIVE); NITRITE NEGATIVE (NEGATIVE); SPECIFIC GRAVITY 1.025 (1.001-1.030)
[2020-06-16 08:05] LABS: BACTERIA 1+; EPITHELIAL CELLS 0-2; MUCOUS 2+; WBC 0-2 wbc/hpf (0-5)
[2020-06-16 08:12] LABS: BASO % 0.2 % (0.0-1.0); EOS # 0.1 10*3/uL (0.0-0.4); EOS % 1.1 % (1.0-4.0); HEMATOCRIT 49.4 % (42.0-52.0); LYMPH # 2.3 10*3/uL (1.3-4.4); LYMPH % 25.7 % (27.0-41.0); MEAN CELL VOLUME 87.3 fl (80.0-94.0); MEAN CORPUSCULAR HGB 28.8 pg (27.0-31.0); MEAN PLATELET VOLUME 10.4 fl (9.6-12.3); MONO # 0.8 10*3/uL (0.1-1.0); MONO % 9.4 % (3.0-9.0); NEUT # 5.6 10*3/uL (2.3-7.9); NEUT % 63.3 % (47.0-73.0); PLATELET COUNT AUTOMATED 255 10*3/uL (130-400); RED BLOOD COUNT 5.66 10*6/uL (4.50-5.90); WHITE BLOOD COUNT 8.9 10*3/uL (4.8-10.8)
[2020-06-16 08:23] LABS: BUN 9 mg/dl (7-24); CHLORIDE 107 mmol/L (98-107); CREATININE 1.06 mg/dL (0.70-1.30); POTASSIUM 3.2 mmol/L (3.5-5.1); SODIUM 139 mmol/L (136-145)
== END 2020-06-16 08:37 | disposition home or self-care (01) ==
LOC: ED 07:27
PROVIDERS: Emergency Medicine
DX: N28.1 Cyst of kidney, acquired (principal); E87.6 Hypokalemia; M54.5 Low back pain; K21.9 Gastro-esophageal reflux disease without esophagitis

== ENCOUNTER → 2020-07-01 | Outpatient (CLI) | payer OTHER | END | disposition home or self-care (01) | LOC: RAD 12:31 | PROVIDERS: ATTEND Family Medicine | DX: M19.90 Unspecified osteoarthritis, unspecified site (principal) ==

== ENCOUNTER → 2020-11-04 | Outpatient (CLI) | payer OTHER ==
[2020-11-04 13:13] LABS: BASO % 0.6 % (0.0-1.0); EOS # 0.1 10*3/uL (0.0-0.4); EOS % 1.8 % (1.0-4.0); HEMATOCRIT 47.3 % (42.0-52.0); LYMPH # 1.8 10*3/uL (1.3-4.4); LYMPH % 27.2 % (27.0-41.0); MEAN CELL VOLUME 88.2 fl (80.0-94.0); MEAN CORPUSCULAR HGB 28.9 pg (27.0-31.0); MEAN CORPUSCULAR HGB CONC 32.8 g/dl (33.0-37.0); MEAN PLATELET VOLUME 10.5 fl (9.6-12.3); MONO # 0.6 10*3/uL (0.1-1.0); MONO % 9.1 % (3.0-9.0); NEUT % 60.8 % (47.0-73.0); PLATELET COUNT AUTOMATED 263 10*3/uL (130-400); RED BLOOD COUNT 5.36 10*6/uL (4.50-5.90); RED CELL DISTRI WIDTH 13.2 % (0-14.5); WHITE BLOOD COUNT 6.5 10*3/uL (4.8-10.8)
[2020-11-04 13:31] LABS: BILIRUBIN Negative (Negative); BLOOD Negative (Negative); CLARITY Clear (Clear); COLOR Yellow (Yellow); GLUCOSE Negative (Negative); KETONE Negative (Negative); LEUKO ESTERASE Negative (Negative); NITRITE Negative (Negative); SPECIFIC GRAVITY 1.025 (1.001-1.030)
[2020-11-04 13:42] LABS: MUCOUS TRACE; WBC 0-2 wbc/hpf (0-5)
[2020-11-04 13:45] LABS: ALBUMIN 4.4 gm/dl (3.1-4.5); ALKALINE PHOSPHATASE 75 U/L (45-117); BUN 13 mg/dl (7-24); CHLORIDE 107 mmol/L (98-107); CHOLESTEROL 167 mg/dL (<200); CREATININE 1.14 mg/dL (0.70-1.30); GAMMA GLUTAMYL TRANSPEPTIDASE 21 U/L (15-85); HDL CHOLESTEROL 42 mg/dl (40-60); IRON 136 ug/dL (65-175); LDL CHOLESTEROL 112 mg/dL (9-159); POTASSIUM 3.9 mmol/L (3.5-5.1); SGOT/AST 11 IU/L (3-35); SGPT/ALT 18 U/L (12-78); SODIUM 136 mmol/L (136-145); T3 UPTAKE 37 % (31-39); THYROXINE (T4) TOTAL 8.3 ug/dl (4.5-12.1); TOTAL IRON BINDING CAPACITY 326 ug/dl (250-450); TOTAL PROTEIN 7.7 gm/dL (6.4-8.2); TRIGLYCERIDES 64 mg/dl (<150); URIC ACID 5.6 mg/dL (3.5-7.2); VLDL CHOLESTEROL 13 mg/dL (6-40)
[2020-11-04 14:28] LABS: VITAMIN D, 25-HYDROXY 23.1 ng/mL (30-100)
[2020-11-04 14:43] LABS: FERRITIN 158.5 ng/mL (22.0-322.0)
[2020-11-05 06:08] LABS: HEP B CORE AB, IGM Negative (Negative); HEPATITIS B SURFACE AG Negative (Negative); HEPATITIS C VIRUS ANTIBODY <0.1 s/co (0.0-0.9)
[2020-11-05 09:06] LABS: RHEUMATOID ARTHRITIS FACTOR <10.0 IU/mL (0.0-13.9)
[2020-11-06 12:08] LABS: ANTI-DSDNA ANTIBODIES <1 IU/mL (0-9)
== END | disposition home or self-care (01) ==
LOC: LAB 12:43
PROVIDERS: ATTEND Family Medicine
DX: R79.89 Other specified abnormal findings of blood chemistry (principal); R53.83 Other fatigue; E78.5 Hyperlipidemia, unspecified; E55.9 Vitamin D deficiency, unspecified

== ENCOUNTER 2021-02-09 20:02 | Emergency (ER) | payer OTHER ==
[~2021-02-09] VITALS: Ht 165.1 cm; Wt 78.5 kg
[2021-02-09 23:49] LABS: BASO % 0.3 % (0.0-1.0); EOS # 0.1 10*3/uL (0.0-0.4); EOS % 1.2 % (1.0-4.0); HEMATOCRIT 43.7 % (42.0-52.0); LYMPH # 2.3 10*3/uL (1.3-4.4); LYMPH % 26.2 % (27.0-41.0); MEAN CELL VOLUME 87.2 fl (80.0-94.0); MEAN CORPUSCULAR HGB 29.1 pg (27.0-31.0); MEAN CORPUSCULAR HGB CONC 33.4 g/dl (33.0-37.0); MEAN PLATELET VOLUME 10.3 fl (9.6-12.3); MONO # 0.6 10*3/uL (0.1-1.0); NEUT # 5.6 10*3/uL (2.3-7.9); NEUT % 65.1 % (47.0-73.0); PLATELET COUNT AUTOMATED 262 10*3/uL (130-400); RED BLOOD COUNT 5.01 10*6/uL (4.50-5.90); RED CELL DISTRI WIDTH 12.7 % (0-14.5); WHITE BLOOD COUNT 8.6 10*3/uL (4.8-10.8)
[2021-02-10 00:07] LABS: ALBUMIN 3.9 gm/dl (3.1-4.5); ALKALINE PHOSPHATASE 75 U/L (45-117); BUN 12 mg/dl (7-24); CHLORIDE 108 mmol/L (98-107); CREATININE 1.07 mg/dL (0.70-1.30); LIPASE 352 U/L (73-393); POTASSIUM 3.9 mmol/L (3.5-5.1); SGOT/AST 13 IU/L (3-35); SGPT/ALT 18 U/L (12-78); SODIUM 141 mmol/L (136-145); TOTAL PROTEIN 7.1 gm/dL (6.4-8.2)
== END 2021-02-10 02:13 | disposition home or self-care (01) ==
LOC: ED 20:02
PROVIDERS: Emergency Medicine
DX: K82.8 Other specified diseases of gallbladder (principal); F17.210 Nicotine dependence, cigarettes, uncomplicated; F12.90 Cannabis use, unspecified, uncomplicated

== ENCOUNTER 2021-04-26 14:38 | Emergency (ER) | payer OTHER ==
[~2021-04-26] VITALS: Ht 162.5 cm; Wt 70.3 kg
[2021-04-26 15:10] LABS: BASO % 0.3 % (0.0-1.0); EOS # 0.1 10*3/uL (0.0-0.4); EOS % 0.8 % (1.0-4.0); HEMATOCRIT 42.6 % (42.0-52.0); LYMPH # 1.7 10*3/uL (1.3-4.4); LYMPH % 21.8 % (27.0-41.0); MEAN CELL VOLUME 86.8 fl (80.0-94.0); MEAN CORPUSCULAR HGB 29.1 pg (27.0-31.0); MEAN CORPUSCULAR HGB CONC 33.6 g/dl (33.0-37.0); MEAN PLATELET VOLUME 10.1 fl (9.6-12.3); MONO # 0.6 10*3/uL (0.1-1.0); MONO % 8.4 % (3.0-9.0); NEUT # 5.2 10*3/uL (2.3-7.9); NEUT % 68.4 % (47.0-73.0); PLATELET COUNT AUTOMATED 255 10*3/uL (130-400); RED BLOOD COUNT 4.91 10*6/uL (4.50-5.90); RED CELL DISTRI WIDTH 12.5 % (0-14.5); WHITE BLOOD COUNT 7.6 10*3/uL (4.8-10.8)
[2021-04-26 15:27] LABS: ALBUMIN 4.2 gm/dl (3.1-4.5); ALKALINE PHOSPHATASE 68 U/L (45-117); BUN 18 mg/dl (7-24); CHLORIDE 109 mmol/L (98-107); CREATININE 1.09 mg/dL (0.70-1.30); POTASSIUM 4.1 mmol/L (3.5-5.1); SGOT/AST 11 IU/L (3-35); SGPT/ALT 15 U/L (12-78); SODIUM 138 mmol/L (136-145); TOTAL PROTEIN 7.4 gm/dL (6.4-8.2)
[2021-04-26 15:33] LABS: TROPONIN I < 0.015 ng/ml (<0.045)
[2021-04-27] MEDS ORDERED: MEDROL DOSEPAK4 MG PO (05:15)
[2021-04-27] MEDS ORDERED: DIPHENHYDRAMINE50 M1 PO (05:15)
== END 2021-04-26 18:08 | disposition home or self-care (01) ==
LOC: ED 14:38
PROVIDERS: Emergency Medicine
DX: F41.9 Anxiety disorder, unspecified (principal); R25.2 Cramp and spasm; R20.2 Paresthesia of skin; F17.210 Nicotine dependence, cigarettes, uncomplicated; Z79.2 Long term (current) use of antibiotics; Z79.899 Other long term (current) drug therapy; Z98.890 Other specified postprocedural states

== ENCOUNTER 2021-04-26 21:38 | Emergency (ER) | payer OTHER ==
[2021-04-26 22:53] LABS: BASO % 0.1 % (0.0-1.0); EOS # 0.1 10*3/uL (0.0-0.4); EOS % 0.2 % (1.0-4.0); HEMATOCRIT 52.7 % (42.0-52.0); LYMPH # 1.8 10*3/uL (1.3-4.4); LYMPH % 8.6 % (27.0-41.0); MEAN CELL VOLUME 85.7 fl (80.0-94.0); MEAN CORPUSCULAR HGB 29.4 pg (27.0-31.0); MEAN CORPUSCULAR HGB CONC 34.3 g/dl (33.0-37.0); MEAN PLATELET VOLUME 10.5 fl (9.6-12.3); MONO % 4.6 % (3.0-9.0); NEUT # 17.8 10*3/uL (2.3-7.9); PLATELET COUNT AUTOMATED 315 10*3/uL (130-400); RED BLOOD COUNT 6.15 10*6/uL (4.50-5.90); RED CELL DISTRI WIDTH 12.4 % (0-14.5); WHITE BLOOD COUNT 20.7 10*3/uL (4.8-10.8)
[2021-04-26 23:14] LABS: ALBUMIN 4.2 gm/dl (3.1-4.5); ALKALINE PHOSPHATASE 73 U/L (45-117); BUN 20 mg/dl (7-24); CHLORIDE 107 mmol/L (98-107); CREATININE 1.21 mg/dL (0.70-1.30); POTASSIUM 3.4 mmol/L (3.5-5.1); SGOT/AST 13 IU/L (3-35); SGPT/ALT 17 U/L (12-78); SODIUM 138 mmol/L (136-145); TOTAL PROTEIN 7.7 gm/dL (6.4-8.2)
[2021-04-27] MEDS ORDERED: DIPHENHYDRAMINE50 M1 PO (05:15)
[2021-04-27] MEDS ORDERED: MEDROL DOSEPAK4 MG PO (05:15)
== END 2021-04-27 05:34 | disposition home or self-care (01) ==
LOC: ED 21:38
PROVIDERS: Emergency Medicine
DX: L50.8 Other urticaria (principal); T78.40XA Allergy, unspecified, initial encounter; F12.90 Cannabis use, unspecified, uncomplicated; F17.210 Nicotine dependence, cigarettes, uncomplicated; Y92.89 Other specified places as the place of occurrence of the external cause

== ENCOUNTER → 2021-05-26 | Outpatient (CLI) | payer OTHER ==
[~2021-05-26] MED LIST changes: +DIPHENHYDRAMINE50 M1 PO; +MEDROL DOSEPAK4 MG PO; +MUCINEX1200 M1 PO; +PROVENTIL HFA6.7 GM INH; +TESSALON PERLE100 MG PO
== END | disposition home or self-care (01) ==
LOC: RAD 13:53
PROVIDERS: ATTEND Family Medicine
DX: J40 Bronchitis, not specified as acute or chronic (principal)

== ENCOUNTER 2021-06-10 13:47 | Emergency (ER) | payer OTHER ==
[~2021-06-10] VITALS: Wt 74.4 kg
[~2021-06-10 13:47] MED LIST changes: -MUCINEX1200 M1 PO; -PROVENTIL HFA6.7 GM INH; -TESSALON PERLE100 MG PO
[2021-06-10] MEDS ORDERED: MUCINEX1200 M1 PO (16:44)
[2021-06-10] MEDS ORDERED: PROVENTIL HFA6.7 GM INH (16:44)
[2021-06-10] MEDS ORDERED: TESSALON PERLE100 MG PO (16:44)
== END 2021-06-10 16:55 | disposition home or self-care (01) ==
LOC: ED 13:47
DX: J20.8 Acute bronchitis due to other specified organisms (principal); Z20.822 Contact with and (suspected) exposure to COVID-19; Z79.899 Other long term (current) drug therapy; Z87.891 Personal history of nicotine dependence

== ENCOUNTER → 2021-07-21 | Outpatient (CLI) | payer OTHER ==
[~2021-07-21] MED LIST changes: +MUCINEX1200 M1 PO; +PROVENTIL HFA6.7 GM INH; +TESSALON PERLE100 MG PO
== END | disposition home or self-care (01) ==
LOC: COVID19 16:07
PROVIDERS: ATTEND Internal Medicine
DX: Z11.52 Encounter for screening for COVID-19 (principal)

== ENCOUNTER → 2021-09-06 | Outpatient (CLI) | payer OTHER | END | disposition home or self-care (01) | LOC: US 08-22 08:30 | PROVIDERS: ATTEND Family Medicine | DX: N28.1 Cyst of kidney, acquired (principal); R10.84 Generalized abdominal pain; R10.2 Pelvic and perineal pain ==

== ENCOUNTER → 2021-09-13 | Outpatient (CLI) | payer OTHER | END | disposition home or self-care (01) | LOC: NM 06:57 | PROVIDERS: ATTEND Family Medicine | DX: R10.84 Generalized abdominal pain (principal) ==

== ENCOUNTER 2022-08-20 16:39 | Emergency (ER) | payer OTHER ==
[~2022-08-20] VITALS: Wt 75.7 kg
== END 2022-08-20 19:35 | disposition left against medical advice (07) ==
LOC: ED 16:39
DX: M54.9 Dorsalgia, unspecified (principal); Z53.21 Procedure and treatment not carried out due to patient leaving prior to being seen by health care provider

== ENCOUNTER 2023-12-29 15:50 | Emergency (ER) | payer OTHER ==
[~2023-12-29] VITALS: Ht 170.1 cm; Wt 77.1 kg
[2023-12-29] MEDS ORDERED: hydrOXYzine pamoate 25 MG CAP PO ONE (16:05)
[2023-12-29 16:24] LABS: BASO # 0.1 10*3/uL (0.0-0.1); BASO % 0.5 % (0.0-1.0); EOS # 0.1 10*3/uL (0.0-0.4); EOS % 0.7 % (1.0-4.0); HEMATOCRIT 41.7 % (42.0-52.0); LYMPH # 2.4 10*3/uL (1.3-4.4); LYMPH % 24.7 % (27.0-41.0); MEAN CELL VOLUME 88.5 fl (80.0-94.0); MEAN CORPUSCULAR HGB 29.3 pg (27.0-31.0); MEAN CORPUSCULAR HGB CONC 33.1 g/dl (33.0-37.0); MEAN PLATELET VOLUME 9.9 fl (9.6-12.3); MONO # 0.6 10*3/uL (0.1-1.0); MONO % 6.2 % (3.0-9.0); NEUT # 6.3 10*3/uL (2.3-7.9); NEUT % 65.8 % (47.0-73.0); PLATELET COUNT AUTOMATED 281 10*3/uL (130-400); RED BLOOD COUNT 4.71 10*6/uL (4.50-5.90); RED CELL DISTRI WIDTH 12.8 % (0-14.5); WHITE BLOOD COUNT 9.6 10*3/uL (4.8-10.8)
[2023-12-29 16:44] LABS: ALKALINE PHOSPHATASE 56 U/L (46-116); BUN 19 mg/dl (9-23); CHLORIDE 105 mmol/L (98-107); POTASSIUM 3.4 mmol/L (3.4-5.1); SGPT/ALT 10 U/L (5-49); TOTAL PROTEIN 6.6 gm/dL (6.0-8.0)
== END 2023-12-29 18:18 | disposition home or self-care (01) ==
LOC: ED 15:50
PROVIDERS: Internal Medicine
DX: F41.9 Anxiety disorder, unspecified (principal); R07.89 Other chest pain; F17.210 Nicotine dependence, cigarettes, uncomplicated; Z79.899 Other long term (current) drug therapy; Z79.2 Long term (current) use of antibiotics; Z98.890 Other specified postprocedural states

== ENCOUNTER → 2024-01-27 | Outpatient (CLI) | payer OTHER ==
[2024-01-27 15:47] LABS: BASO % 0.5 % (0.0-1.0); EOS # 0.2 10*3/uL (0.0-0.4); EOS % 1.9 % (1.0-4.0); HEMATOCRIT 43.4 % (42.0-52.0); LYMPH # 1.9 10*3/uL (1.3-4.4); LYMPH % 23.6 % (27.0-41.0); MEAN CORPUSCULAR HGB 29.2 pg (27.0-31.0); MEAN CORPUSCULAR HGB CONC 33.2 g/dl (33.0-37.0); MEAN PLATELET VOLUME 9.6 fl (9.6-12.3); MONO # 0.5 10*3/uL (0.1-1.0); MONO % 6.6 % (3.0-9.0); NEUT # 5.4 10*3/uL (2.3-7.9); PLATELET COUNT AUTOMATED 278 10*3/uL (130-400); RED BLOOD COUNT 4.93 10*6/uL (4.50-5.90); RED CELL DISTRI WIDTH 12.7 % (0-14.5); RETICULOCYTE % 0.94 % (0.50-2.50); WHITE BLOOD COUNT 8.1 10*3/uL (4.8-10.8)
[2024-01-27 15:49] LABS: BILIRUBIN Negative (Negative); BLOOD Negative (Negative); CLARITY Clear (Clear); COLOR Yellow (Yellow); GLUCOSE Negative (Negative); KETONE Negative (Negative); NITRITE Negative (Negative); SPECIFIC GRAVITY 1.025 (1.001-1.030); UROBILINOGEN 0.2 E.U./dl (0.0-1.0)
[2024-01-27 16:02] LABS: BACTERIA 1+; CALCIUM OXALATE CRYSTALS 1+; LEUKO ESTERASE 1+ (Negative); MUCOUS 1+; RBC 0-2 rbc/hpf (0-2); WBC 31-40 wbc/hpf (0-5)
[2024-01-27 16:15] LABS: VITAMIN D, 25-HYDROXY 26.1 ng/mL (30-100)
[2024-01-27 16:15] LABS: ALKALINE PHOSPHATASE 60 U/L (46-116); BUN 10 mg/dl (9-23); CHLORIDE 105 mmol/L (98-107); CHOLESTEROL 171 mg/dL (<200); GAMMA GLUTAMYL TRANSPEPTIDASE 19 U/L (0-73); LDL CHOLESTEROL 104 mg/dL (9-159); SGPT/ALT 9 U/L (5-49); T3 UPTAKE 31.3 % (22.4-36.7); THYROXINE (T4) TOTAL 6.1 ug/dl (4.5-10.9); TRIGLYCERIDES 131 mg/dl (<150); URIC ACID 5.9 mg/dL (3.7-9.2)
[2024-01-28 12:08] LABS: ANTI-DSDNA ANTIBODIES <1 IU/mL (0-9)
[2024-01-31 19:06] LABS: ALTERNARIA ALTERNATA, IGE <0.10 kU/L (Class 0); AMERICAN ELM, IGE <0.10 kU/L (Class 0); ASPERGILLUS FUMIGATU, IGE <0.10 kU/L (Class 0); BERMUDA GRASS, IGE <0.10 kU/L (Class 0); BIRCH, COMMON SILVER IGE <0.10 kU/L (Class 0); CLADOSPORIUM HERBARU, IGE <0.10 kU/L (Class 0); D FARINAE MITE <0.10 kU/L (Class 0); D PTERONYSSINUS <0.10 kU/L (Class 0); DOG DANDER, IGE <0.10 kU/L (Class 0); MAPLE LEAF SYCAMORE, IGE <0.10 kU/L (Class 0); MAPLE/BOX ELDER, IGE <0.10 kU/L (Class 0); MOUSE URINE IGE <0.10 kU/L (Class 0); PENICILLIUM CHRYSOGENUM, IGE <0.10 kU/L (Class 0); ROUGH PIGWEED, IGE <0.10 kU/L (Class 0); SHEEP SORREL (DOCK), IGE <0.10 kU/L (Class 0); SHORT RAGWEED, IGE <0.10 kU/L (Class 0); TIMOTHY, IGE <0.10 kU/L (Class 0); WALNUT TREE, IGE <0.10 kU/L (Class 0); WHITE ASH, IGE <0.10 kU/L (Class 0); WHITE MULBERRY, IGE <0.10 kU/L (Class 0)
[2024-02-01 01:06] LABS: CODFISH, IGE <0.10 kU/L (Class 0); CORN, IGE <0.10 kU/L (Class 0); EGG WHITE, IGE <0.10 kU/L (Class 0); MILK (COW), IGE <0.10 kU/L (Class 0); PEANUT, IGE <0.10 kU/L (Class 0); SOYBEAN, IGE <0.10 kU/L (Class 0); WHEAT, IGE <0.10 kU/L (Class 0)
[2024-02-01 01:06] LABS: ALTERNARIA ALTERNATA, IGE <0.10 kU/L (Class 0); AMERICAN ELM, IGE <0.10 kU/L (Class 0); BERMUDA GRASS, IGE <0.10 kU/L (Class 0); D FARINAE MITE <0.10 kU/L (Class 0); D PTERONYSSINUS <0.10 kU/L (Class 0); DOG DANDER, IGE <0.10 kU/L (Class 0); MOUSE URINE IGE <0.10 kU/L (Class 0); SHORT RAGWEED, IGE <0.10 kU/L (Class 0); WHITE OAK, IGE <0.10 kU/L (Class 0)
== END | disposition home or self-care (01) ==
LOC: LAB 15:24
PROVIDERS: ATTEND Family Medicine
DX: R79.89 Other specified abnormal findings of blood chemistry (principal); R74.8 Abnormal levels of other serum enzymes; R53.83 Other fatigue; E78.5 Hyperlipidemia, unspecified; E55.9 Vitamin D deficiency, unspecified

== ENCOUNTER → 2024-07-03 | Outpatient (CLI) | payer OTHER ==
[2024-07-03 11:49] LABS: T3 UPTAKE 36.2 % (22.4-36.7); THYROXINE (T4) TOTAL 6.5 ug/dl (4.5-10.9)
== END | disposition home or self-care (01) ==
LOC: LAB 10:29
PROVIDERS: ATTEND Family Medicine
DX: E78.5 Hyperlipidemia, unspecified (principal); R53.83 Other fatigue; R79.89 Other specified abnormal findings of blood chemistry; E55.9 Vitamin D deficiency, unspecified

== ENCOUNTER → 2025-02-16 | Outpatient (CLI) | payer OTHER ==
[2025-02-16 11:12] LABS: BASO % 0.6 % (0.0-1.0); EOS # 0.2 10*3/uL (0.0-0.4); EOS % 2.9 % (1.0-4.0); HEMATOCRIT 45.9 % (42.0-52.0); MEAN CELL VOLUME 86.4 fl (80.0-94.0); MEAN CORPUSCULAR HGB CONC 33.6 g/dl (33.0-37.0); MONO # 0.5 10*3/uL (0.1-1.0); MONO % 6.3 % (3.0-9.0); NEUT # 4.4 10*3/uL (2.3-7.9); NEUT % 61.4 % (47.0-73.0); PLATELET COUNT AUTOMATED 249 10*3/uL (130-400); RED BLOOD COUNT 5.31 10*6/uL (4.50-5.90); RED CELL DISTRI WIDTH 13.1 % (0-14.5); RETICULOCYTE % 1.17 % (0.50-2.50); WHITE BLOOD COUNT 7.1 10*3/uL (4.8-10.8)
[2025-02-16 11:37] LABS: ALKALINE PHOSPHATASE 68 U/L (46-116); BUN 7 mg/dl (9-23); CHLORIDE 105 mmol/L (98-107); CHOLESTEROL 184 mg/dL (<200); GAMMA GLUTAMYL TRANSPEPTIDASE 20 U/L (0-73); LDL CHOLESTEROL 116 mg/dL (9-159); POTASSIUM 3.9 mmol/L (3.4-5.1); SGPT/ALT 12 U/L (5-49); THYROXINE (T4) TOTAL 5.4 ug/dl (4.5-10.9); TOTAL PROTEIN 7.1 gm/dL (6.0-8.0); TRIGLYCERIDES 138 mg/dl (<150)
[2025-02-16 11:57] LABS: VITAMIN D, 25-HYDROXY 23.2 ng/mL (30-100)
== END | disposition home or self-care (01) ==
LOC: LAB 10:49
PROVIDERS: ATTEND Family Medicine
DX: E78.5 Hyperlipidemia, unspecified (principal); E55.9 Vitamin D deficiency, unspecified; R53.83 Other fatigue; R79.89 Other specified abnormal findings of blood chemistry

== ENCOUNTER 2025-06-18 19:12 | Emergency (ER) | payer OTHER ==
[~2025-06-18] VITALS: Ht 165.1 cm; Wt 77.1 kg
[2025-06-18] MEDS ORDERED: diphenhydrAMINE hydrochloride 50 MG/ML VIAL IV ONE (19:35)
[2025-06-18] MEDS ORDERED: Dexamethasone Sodium Phospha 20 MG/5 ML VIAL IV ONE (19:35)
== END 2025-06-18 21:08 | disposition home or self-care (01) ==
LOC: ED 19:12
DX: G43.909 Migraine, unspecified, not intractable, without status migrainosus (principal); J45.909 Unspecified asthma, uncomplicated; F41.9 Anxiety disorder, unspecified; F12.90 Cannabis use, unspecified, uncomplicated; Z79.899 Other long term (current) drug therapy; Z98.890 Other specified postprocedural states

== ENCOUNTER → 2025-07-02 | Outpatient (CLI) | payer OTHER ==
[2025-07-02 11:48] LABS: BASO # 0.1 10*3/uL (0.0-0.1); BASO % 0.8 % (0.0-1.0); EOS # 0.2 10*3/uL (0.0-0.4); EOS % 3.7 % (1.0-4.0); MEAN CELL VOLUME 85.3 fl (80.0-94.0); MEAN CORPUSCULAR HGB 29.1 pg (27.0-31.0); MEAN PLATELET VOLUME 10.2 fl (9.6-12.3); MONO # 0.5 10*3/uL (0.1-1.0); MONO % 7.4 % (3.0-9.0); NEUT # 3.8 10*3/uL (2.3-7.9); NEUT % 60.9 % (47.0-73.0); NUCLEATED RED BLOOD CELL 0.0 % (0.0-0.0); NUCLEATED RED BLOOD CELL 0.0 10*3/uL (0.0-0.0); PLATELET COUNT AUTOMATED 250 10*3/uL (130-400); RED CELL DISTRI WIDTH 12.8 % (0-14.5); RETICULOCYTE % 0.86 % (0.50-2.50)
[2025-07-02 11:48] LABS: BILIRUBIN Negative (Negative); BLOOD Negative (Negative); CLARITY Clear (Clear); COLOR Yellow (Yellow); KETONE Trace (Negative); LEUKO ESTERASE Negative (Negative); NITRITE Negative (Negative); PH 5.5 (4.5-8.0); SPECIFIC GRAVITY >= 1.030 (1.001-1.030); UROBILINOGEN 1.0 E.U./dl (0.0-1.0)
[2025-07-02 12:00] LABS: BACTERIA 1+; EPITHELIAL CELLS 0-2; MUCOUS 1+; RBC 0-2 rbc/hpf (0-2); WBC 0-2 wbc/hpf (0-5)
[2025-07-02 12:12] LABS: BUN 12 mg/dl (9-23); GAMMA GLUTAMYL TRANSFERASE 19 U/L (0-73); LDL CHOLESTEROL 116 mg/dL (9-159); SGPT/ALT 18 U/L (5-49)
[2025-07-02 12:31] LABS: VITAMIN D, 25-HYDROXY 29.7 ng/mL (30-100)
== END | disposition home or self-care (01) ==
LOC: LAB 11:16
PROVIDERS: ATTEND Family Medicine
DX: E78.5 Hyperlipidemia, unspecified (principal); E55.9 Vitamin D deficiency, unspecified; R53.83 Other fatigue; R79.89 Other specified abnormal findings of blood chemistry

== ENCOUNTER → 2025-07-31 | Outpatient (CLI) | payer OTHER | END | disposition home or self-care (01) | LOC: US 08:30 | PROVIDERS: ATTEND Family Medicine | DX: N28.1 Cyst of kidney, acquired (principal); R10.84 Generalized abdominal pain; R10.20 Pelvic and perineal pain unspecified side; K76.0 Fatty (change of) liver, not elsewhere classified; N32.89 Other specified disorders of bladder ==

== ENCOUNTER → 2025-08-18 | Outpatient (CLI) | payer OTHER ==
[~2025-08-18] MED LIST changes: +SINCALIDE 1.6 MCG in SODIUM CHLORIDE 0.9% 50 ML IV ONE; +SINCALIDE 5 MCG VIAL IV SCH; +Technetium Tc 99M Mebrofenin 1 KIT KIT IV SCH
== END | disposition home or self-care (01) ==
LOC: NM 00:35
PROVIDERS: ATTEND Family Medicine
DX: R10.84 Generalized abdominal pain (principal)